=== PATIENT | female | born 1995 | race Caucasian/White ===

== ENCOUNTER 2016-05-05 23:21 | Emergency (ER) | payer BC, OTHER ==
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
[2016-05-06] MEDS ORDERED: MUPIROCIN 2% OINTMENT 22 GM TP ONE (03:37)
[2016-05-06] MEDS ORDERED: DIPH/PERTUSS(ACELL)/TETANUS VAC/PF 0.5 ML SYR (>=10YO) IM ONE (03:37)
[2016-05-06] MEDS ORDERED: SILVER SULFADIAZINE 1% CREAM 400 GM TP PRN (03:37)
[2016-05-06] MEDS ORDERED: HYDROCODONE/ACETAMINOPHEN 5-325 MG 6 TAB/DSPK PO PRN (03:38)
[2016-05-06 04:16] VITALS: BP 114/67
== END 2016-05-06 04:17 | disposition home or self-care (01) ==
LOC: ER 23:21
DX: T23.161A Burn of first degree of back of right hand, initial encounter (principal); T23.231A Burn of second degree of multiple right fingers (nail), not including thumb, initial encounter; X10.2XXA Contact with fats and cooking oils, initial encounter; Y93.G3 Activity, cooking and baking; Y92.009 Unspecified place in unspecified non-institutional (private) residence as the place of occurrence of the external cause; Z23 Encounter for immunization
CPT/HCPCS: 99283; 90471; 90715; J3490 ×2